=== PATIENT | female | born 1960 | race Caucasian/White ===

== ENCOUNTER 2023-03-24 05:50 | Emergency (ER) | payer MEDICAID, OTHER ==
[~2023-03-24] VITALS: Ht 160 cm; Wt 74.4 kg
[2023-03-24 06:00] VITALS: BP 189/90
[2023-03-24] MEDS ORDERED: KETOROLAC 30 MG/ML VIAL IM ONE (06:05)
[2023-03-24] MEDS ORDERED: CYCLOBENZAPRINE 10 MG TAB PO ONE (06:05)
--- NOTE | 2023-03-24 06:05 | NUR ---
to bed ambulatory
--- NOTE | 2023-03-24 06:15 | NUR ---
62 Y/O F PRESENTS WITH L SHOULDER PAIN X2DAYS 05/29 PAIN. PT DENIES ANY FALLS. PT STATES SHE HAS BEEN HAVING LACK OF SLEEP DUE TO PAIN AND A SLIGHT HEADACHE. DENIES ANY NVD, A&OX4, SKIN INTACT, AMBULATORY. PMH-DIABETES II, NKA MEDICATIONS-METFORMIN, METROPLOL
--- NOTE | 2023-03-24 06:21 | NUR ---
X-Ray at bedside.
--- NOTE | 2023-03-24 07:10 | NUR ---
Dr. Gimenez examining patient.
[2023-03-24] MEDS ORDERED: IBUP-1842 PO (07:14)
[2023-03-24] MEDS ORDERED: CYCL-711 PO (07:15)
--- NOTE | 2023-03-24 07:15 | NUR ---
ASSUMED PT CARE PT AOX4 GCS 15 RESTING COMFORTABLY IN ROOM 5
--- NOTE | 2023-03-24 07:18 | NUR ---
Pt report given to CLEM BORDEN. Transfer of care at this time.
--- NOTE | 2023-03-24 07:40 | NUR ---
PATIENT D/C ACCORDINGLY WILL FOLLOW UP WITH PRIMARY PROVIDER. PT AMBULATED OUT OF ER.
--- NOTE | 2023-03-24 07:41 | NUR ---
Patient discharged with v/s stable. Written and verbal after care instructions given and explained. Patient verbalized understanding. Ambulatory with steady gait. All questions addressed prior to discharge. Advised to follow up with PMD.
== END 2023-03-24 07:42 | disposition home or self-care (01) ==
LOC: MED 05:50
DX: M25.512 Pain in left shoulder (principal); R20.0 Anesthesia of skin; I10 Essential (primary) hypertension; E11.9 Type 2 diabetes mellitus without complications; Z79.899 Other long term (current) drug therapy; Z79.1 Long term (current) use of non-steroidal anti-inflammatories (NSAID)
CPT/HCPCS: 73030; 96372; 99283; J1885